=== PATIENT | female | born 1990 | race Caucasian/White ===

== ENCOUNTER 2016-06-08 19:07 | Emergency (ER) | payer OTHER, MEDICAID ==
[2016-06-08 21:38] VITALS: BP 120/58
== END 2016-06-08 21:39 | disposition home or self-care (01) ==
LOC: ED 19:07
DX: O26.891 Other specified pregnancy related conditions, first trimester (principal); K59.00 Constipation, unspecified; Z3A.09 9 weeks gestation of pregnancy
CPT/HCPCS: J7030